=== PATIENT | male | born 1990 ===

== ENCOUNTER 2017-01-02 16:11 | Emergency (ER) | payer BC, OTHER ==
[2017-01-02 17:25] VITALS: BMI 25.9
[2017-01-02 17:28] VITALS: TEMP 98.3
--- NOTE | 2017-01-02 18:59 | ED PDOC ---
Arrival/HPI - General Chief Complaint: Finger,Hand,&Wrist Time Seen by Provider: 01/02/17 17:56 Historian: Patient - History of Present Illness Narrative History of Present Illness (Text): 01/02/17 20:35 26-year-old male presents today with injury to the right fourth finger. Patient states yesterday he was playing football and jammed his finger. Patient states it looked like his finger was out of place so he pulled on it and put it back into place and then was placed into a finger splint today. Patient presents today for x-rays as while he was at work someone told him he should have his finger x-rayed. Patient refusing any medications for pain in the emergency room. Denies numbness weakness or tingling in the extremity. Patient states he has slight pain with full flexion of the finger. Time/Duration: Other (1 day) Symptom Onset: Sudden Symptom Course: Improving Quality: Aching Severity Level: 4 Past Medical History - Provider Review Nursing Documentation Reviewed: Yes - Travel History Have you recently traveled outside [place] w/in the past 3 mons?: No - Infectious Disease Hx of Infectious Diseases: None - Tetanus Immunization Tetanus Immunization: Unknown - Psychiatric Hx Substance Use: No - Surgical History Other/Comment: ear tubes drainage - Anesthesia Hx Anesthesia: Yes Hx Anesthesia Reactions: No Hx Malignant Hyperthermia: No Family/Social History - Physician Review Nursing Documentation Reviewed: Yes Family/Social History: Unknown Family HX Smoking Status: Light Smoker < 10 Cigarettes Daily Hx Alcohol Use: Yes Frequency of alcohol use: Socially Hx Substance Use: No Allergies/Home Meds Allergies/Adverse Reactions: Allergies No Known Allergies Allergy (Verified 01/02/17 17:25) Review of Systems - Review of Systems Constitutional: absent: Fatigue, Fevers Respiratory: absent: SOB, Cough Cardiovascular: absent: Chest Pain, Palpitations Gastrointestinal: absent: Abdominal Pain, Nausea, Vomiting Genitourinary Male: absent: Dysuria Musculoskeletal: Arthralgias. absent: Back Pain, Neck Pain Skin: absent: Rash, Pruritis Neurological: absent: Headache, Dizziness Psychiatric: absent: Anxiety, Depression Physical Exam Vital Signs Reviewed: Yes Vital Signs Temp Pulse Resp BP Pulse Ox 01/02/17 19:00 80 16 112/77 99 01/02/17 17:27 98.3 F 62 18 115/77 98 Temperature: Afebrile Blood Pressure: Normal Pulse: Regular Respiratory Rate: Normal Appearance: Positive for: Well-Appearing, Non-Toxic, Comfortable Pain Distress: None Mental Status: Positive for: Alert and Oriented X 3 - Systems Exam Head: Present: Atraumatic Mouth: Present: Moist Mucous Membranes Respiratory/Chest: Present: Clear to Auscultation Cardiovascular: Present: Regular Rate and Rhythm Upper Extremity: Present: NORMAL PULSES, Tenderness (right 4th finger; + ttp and edema noted over the PIP joint of 4th finger; limited flexion of finger; sensation and distal pulses intact; cap refill <2. ), Swelling, Neurovascularly Intact, Capillary Refill < 2s. No: Normal ROM, Erythema, Deformity Skin: Present: Warm, Dry, Normal Color. No: Rashes Psychiatric: Present: Alert, Oriented x 3 Medical Decision Making ED Course and Treatment: 01/02/17 20:37 Patient is nontoxic well-appearing in no distress her vital signs are stable. XRAY finger; positive fracture of base of the middle phalanx Patient has his own finger splint that was reapplied. I discussed all results in depth with the patient advised follow-up with the orthopedist/hand specialist within the next 2 days. I've advised me to return if symptoms worsen persist or if new concerning symptoms develop Patient verbalizes understanding of discharge instructions and need for immediate followup. IMPRESSION: fractured finger Motrin every 6 hours as needed for pain Follow up with primary care physician within the next 2 days Follow up with the orthopedist/hand specialist within the next 2 days Return if symptoms worsen persist or if new symptoms develop - RAD Interpretation Radiology Orders: 01/02/17 17:56 HAND RIGHT 4TH DIGIT (FINGER) [RAD] Stat Disposition/Present on Arrival - Present on Arrival Any Indicators Present on Arrival: No History of DVT/PE: No History of Uncontrolled Diabetes: No Urinary Catheter: No History of Decub. Ulcer: No History Surgical Site Infection Following: None - Disposition Have Diagnosis and Disposition been Completed?: Yes Diagnosis: Finger fracture Disposition: HOME/ ROUTINE Disposition Time: 18:57 Patient Plan: Discharge Condition: GOOD Discharge Instructions (ExitCare): Finger Fracture (ED) Additional Instructions: Motrin every 6 hours as needed for pain USe finger splint Followup with the orthopedist/hand specialist within the next 2 days Followup with primary care physician within the next 2 days Return if any other concerning symptoms develop Prescriptions: Ibuprofen [Motrin] 600 mg PO Q6H PRN #20 tab PRN Reason: pain/fever reduction Referrals: Adonay Mata MD [Staff Provider] - Follow up with primary Jessica Pearce MD [Non-Staff] - Follow up with primary Kevin Rangel MD [Staff Provider] - Follow up with primary Forms: WORK NOTE
[2017-01-02 19:11] VITALS: BP 112/77; PULSE 80; RESP 16; O2SAT 99
--- NOTE | 2017-01-03 08:36 | RAD ---
PROCEDURE: Right Hand Radiographs. HISTORY: finger injury COMPARISON: None. FINDINGS: BONES: Normal. No fracture. JOINTS: Normal. No osteoarthritic changes. SOFT TISSUES: Normal. OTHER FINDINGS: None. IMPRESSION: Normal right hand radiographs.
== END 2017-01-02 19:13 | disposition home or self-care (01) ==
LOC: ED 16:11
DX: S62.624A Displaced fracture of middle phalanx of right ring finger, initial encounter for closed fracture (principal); W23.0XXA Caught, crushed, jammed, or pinched between moving objects, initial encounter; Y93.61 Activity, american tackle football; Y92.39 Other specified sports and athletic area as the place of occurrence of the external cause